=== PATIENT | male | born 1970 | race Caucasian/White ===

== ENCOUNTER 2019-10-20 06:52 | Day surgery (SDC) | payer OTHER, SELFPAY ==
[~2019-10-20] VITALS: Ht 170.2 cm; Wt 66.2 kg
[2019-10-20] MEDS ORDERED: fentaNYL CITRATE/PF 100 MCG/2 ML AMP ONE (07:55)
[2019-10-20] MEDS ORDERED: MIDAZOLAM HCL 5 MG/5 ML VIAL ONE ×2 (07:55→13:37)
[2019-10-20] MEDS ORDERED: SIMETHICONE 40 MG/0.6 ML ML ONE (07:56)
[2019-10-20 13:48] VITALS: BP_SYST 96
== END 2019-10-20 14:40 | disposition home or self-care (01) ==
LOC: SDS 06:52 → SMU 06:57 → SDS 14:40
PROVIDERS: ATTEND Surgery
DX: K62.5 Hemorrhage of anus and rectum (principal); K64.4 Residual hemorrhoidal skin tags; Z11.59 Encounter for screening for other viral diseases
CPT/HCPCS: 45378; 99152; 99153; G0378; J2250; J3010; J7030; U0003

== ENCOUNTER 2019-11-17 10:55 | Day surgery (SDC) | payer OTHER, SELFPAY ==
[2019-11-10 08:52] LABS: BASOPHILS % (AUTO) 0.5 % (0.0-2.0); EOSINOPHILS # (AUTO) 0.1 K/uL (0.0-0.4); EOSINOPHILS % (AUTO) 1.8 % (0.0-4.0); HEMATOCRIT 47.4 % (36-54); HEMOGLOBIN 15.8 g/dL (14.0-18.0); LYMPHOCYTES # (AUTO) 2.4 K/uL (1.0-5.5); LYMPHOCYTES % (AUTO) 44.9 % (20.5-51.5); MEAN CORPUSCULAR HEMOGLOBIN 31 pg (27-31); MEAN CORPUSCULAR HGB CONC 33 % (32-36); MEAN CORPUSCULAR VOLUME 94 fL (79.0-98.0); MONOCYTES # (AUTO) 0.4 K/uL (0.0-1.0); MONOCYTES % (AUTO) 7.8 % (1.7-9.3); NEUTROPHILS # (AUTO) 2.4 K/uL (1.8-7.7); PLATELET COUNT (AUTO) 227 K/uL (130-430); RED BLOOD CELL COUNT(AUTO) 5.03 MIL/uL (4.2-6.2); RED CELL DISTRIBUTION WIDTH 13.5 % (9.0-15.0); WHITE BLOOD COUNT (AUTO) 5.4 K/uL (4.8-10.8)
[2019-11-10 09:14] LABS: ALBUMIN 4.1 g/dL (3.4-4.8); BILIRUBIN,DIRECT 0.2 mg/dL (0.0-0.3); CALCIUM 9.4 mg/dL (8.4-11.0); CREATININE 0.84 mg/dL (0.55-1.30); POTASSIUM 3.6 mmol/L (3.5-5.1); TOTAL BILIRUBIN 0.9 mg/dL (0.0-1.0)
[~2019-11-17] VITALS: Ht 172.7 cm; Wt 67.6 kg
[2019-11-17] MEDS ORDERED: SUCCINYLCHOLINE CHLORIDE 20 MG/ML(QUELICIN) IVP ONE (12:35)
[2019-11-17] MEDS ORDERED: ROCURONIUM BROMIDE 10 MG/ML (ZEMURON) IV ONE (12:35)
[2019-11-17] MEDS ORDERED: LR 1,000 ML IV.SOLN IV ONE (12:35)
[2019-11-17] MEDS ORDERED: SEVOFLURANE 15 MIN GAS INH ONE (12:35)
[2019-11-17] MEDS ORDERED: PROPOFOL 200MG/ 20ML VIAL (DIPRIVAN) IV ONE (12:35)
[2019-11-17] MEDS ORDERED: fentaNYL CITRATE/PF 100 MCG/2 ML AMP IVP ONE (12:35)
[2019-11-17] MEDS ORDERED: BUPIVACAINE /EPINEPHRINE/PF 0.25% 30 ML VIAL INJ ONE (12:35)
[2019-11-17] MEDS ORDERED: ONDANSETRON HCL 4 MG/2 ML VIAL IVP PRN ×2 (13:15→13:30)
[2019-11-17] MEDS ORDERED: HYDROmorphone 1 MG INJ. 1 MG/ML AMPUL IVP PRN (13:15)
[2019-11-17] MEDS ORDERED: ACETAMINOPHEN/CODEINE 300 MG-30 MG TABLET PO PRN (13:30)
[2019-11-17] MEDS ORDERED: MORPHINE SULFATE 10 MG/ML VIAL IVP PRN (13:30)
[2019-11-17 16:22] VITALS: BP_SYST 126
== END 2019-11-17 13:45 | disposition home or self-care (01) ==
LOC: SDS 10:55 → SMU 10:58 → SDS 13:45
PROVIDERS: ATTEND Surgery
DX: K64.8 Other hemorrhoids (principal); K64.4 Residual hemorrhoidal skin tags; K60.3 Anal fistula; K62.89 Other specified diseases of anus and rectum; K62.4 Stenosis of anus and rectum; Z79.899 Other long term (current) drug therapy; Z20.828 Contact with and (suspected) exposure to other viral communicable diseases
CPT/HCPCS: 36415; 46255; 71045; 80053; 80061; 82248; 84153; 85025; 88304; 93005; J0330; J2704; J3010; J3490; J7120; U0003